=== PATIENT | female | born 1930 | race Caucasian/White ===

== ENCOUNTER → 2017-12-03 | Outpatient (CLI) | payer MEDICARE ==
[~2017-12-03] MED LIST: AMOX1TAB64 PO; ASCO10004 PO; BACL-19 PO; CINN500C2 PO; DIAZ5TAB PO; ETOD400T PO; LISI-170 PO; METH500T7 PO; MULT-717 PO; OMEG1CAP25 PO; VITA15LO2 PO
== END ==
LOC: RAD 12:52
PROVIDERS: ATTEND Hospitalist
DX: M54.9 Dorsalgia, unspecified (principal)

== ENCOUNTER → 2018-12-19 | Outpatient (CLI) | payer MEDICARE ==
[2018-12-19 09:30] LABS: BASOPHILS # (AUTO) 0.04 x10^3/uL (0-0.1); BASOPHILS % (AUTO) 1 % (0-1); EOSINOPHILS # (AUTO) 0.07 x10^3/uL (0-0.4); EOSINOPHILS % (AUTO) 2 % (1-7); LYMPHOCYTES # (AUTO) 1.09 x10^3/uL (1-3.4); LYMPHOCYTES % (AUTO) 23 % (22-44); MD NO; MEAN CORPUSCULAR HEMOGLOBIN 29.9 pg (27.0-34.8); MEAN CORPUSCULAR HGB CONC 32.7 g/dL (32.4-35.8); MEAN CORPUSCULAR VOLUME 91.5 fL (80-100); MEAN PLATELET VOLUME 8.2 fL (7.4-10.4); MONOCYTES # (AUTO) 0.26 x10^3/uL (0.2-0.8); MONOCYTES % (AUTO) 5 % (2-9); NEUTROPHILS # (AUTO) 3.37 x10^3/uL (1.8-6.8); NEUTROPHILS % (AUTO) 70 % (42-75); PLATELET COUNT 227 x10^3/uL (130-400); RED BLOOD COUNT 5.01 x10^6/uL (3.82-5.3); RED CELL DISTRIBUTION WIDTH 14.2 % (9.6-15.2)
[2018-12-19 11:24] LABS: CHLORIDE 110 mmol/L (98-107)
[2018-12-19 11:57] LABS: ALANINE AMINOTRANSFERASE 32 U/L (12-78); ALBUMIN 3.6 g/dL (3.4-5.0); ALKALINE PHOSPHATASE 202 U/L (45-117); ANION GAP 8 mmol/L (5-15); BILIRUBIN,TOTAL 0.7 mg/dL (0.2-1.0); CALCIUM 9.2 mg/dL (8.5-10.1); CHOL/HDL RATIO 2.1; CHOLESTEROL, TOTAL 217 mg/dL (140-239); CREATININE 1.36 mg/dL (0.55-1.02); HDL CHOL % 47 % (28-40); HDL CHOLESTEROL (DIRECT) 101 mg/dL (40-60); LDL CHOLESTEROL,CALCULATED 88 mg/dL (54-169); LDL/HDL RATIO 0.9 (0.5-3.0); TOTAL PROTEIN 6.5 g/dL (6.4-8.2); TRIGLYCERIDES 141 mg/dL (50-200); VLDL CHOLESTEROL 28 mg/dL (0-25)
== END | disposition home or self-care (01) ==
LOC: LAB 08:52
PROVIDERS: ATTEND Internal Medicine
DX: E78.00 Pure hypercholesterolemia, unspecified (principal); I12.9 Hypertensive chronic kidney disease with stage 1 through stage 4 chronic kidney disease, or unspecified chronic kidney disease; N18.3 Chronic kidney disease, stage 3 (moderate); M54.6 Pain in thoracic spine; M85.9 Disorder of bone density and structure, unspecified; R74.8 Abnormal levels of other serum enzymes
CPT/HCPCS: 36415; 80053; 80061; 84075; 84080; 84550; 85025

== ENCOUNTER 2019-08-22 09:53 | Outpatient (CLI) | payer MEDICARE ==
[2019-08-22 10:29] LABS: MEAN CORPUSCULAR HEMOGLOBIN 30.8 pg (27.0-34.8); MEAN CORPUSCULAR HGB CONC 32.8 g/dL (32.4-35.8); MEAN CORPUSCULAR VOLUME 93.9 fL (80-100); MEAN PLATELET VOLUME 8.5 fL (7.4-10.4); PLATELET COUNT 193 x10^3/uL (130-400)
[2019-08-22 10:41] LABS: ALBUMIN 3.6 g/dL (3.4-5.0); ANION GAP 4 mmol/L (5-15); CALCIUM 9.4 mg/dL (8.5-10.1); CHLORIDE 110 mmol/L (98-107)
[2019-08-22 10:45] LABS: ALANINE AMINOTRANSFERASE 25 U/L (12-78); ALKALINE PHOSPHATASE 124 U/L (45-117); BILIRUBIN,TOTAL 0.8 mg/dL (0.2-1.0); CHOL/HDL RATIO 2.2; CHOLESTEROL, TOTAL 244 mg/dL (140-239); CREATININE 1.36 mg/dL (0.55-1.02); HDL CHOL % 45 % (28-40); HDL CHOLESTEROL (DIRECT) 111 mg/dL (40-60); LDL CHOLESTEROL,CALCULATED 112 mg/dL (54-169); TOTAL PROTEIN 6.5 g/dL (6.4-8.2); TRIGLYCERIDES 106 mg/dL (50-200); VLDL CHOLESTEROL 21 mg/dL (0-25)
== END 2019-08-22 23:59 | disposition home or self-care (01) ==
LOC: LAB 09:53
PROVIDERS: ATTEND Internal Medicine
DX: E78.00 Pure hypercholesterolemia, unspecified (principal); E79.0 Hyperuricemia without signs of inflammatory arthritis and tophaceous disease; I12.9 Hypertensive chronic kidney disease with stage 1 through stage 4 chronic kidney disease, or unspecified chronic kidney disease; N18.3 Chronic kidney disease, stage 3 (moderate); M50.30 Other cervical disc degeneration, unspecified cervical region; M54.6 Pain in thoracic spine; R74.8 Abnormal levels of other serum enzymes
CPT/HCPCS: 36415; 80053; 80061; 82570; 83970; 84156; 84550; 85027

== ENCOUNTER 2021-03-11 07:35 | Emergency (ER) | payer MEDICARE ==
[~2021-03-11] VITALS: Ht 160 cm; Wt 55.0 kg
[~2021-03-11 07:35] MED LIST changes: +ASCO100018 PO; -ASCO10004 PO; -ETOD400T PO; +ETOD400T3 PO; +METH-639 PO; -METH500T7 PO
--- NOTE | 2021-03-11 07:40 | NUR ---
PT ROBERTO FROM HOME FOR C/O LOWER BACK PAIN. PER PT SHE FELLS 02/27/2021 WHEN HER LEFT LEG GAVE OUT AND SHE LANDED ON HER BOTTOM, SINCE THE FALL SHE C/O BACK PAIN & MUSCLE SPASMS THAT RADIATE TO HER RIBS. PT STATES SHE WENT TO THE [place] WHERE SHE DISCOVERED SHE HAS A COMPRESSION FX. PT TOOK ROBAXIN & TYLENOL @ 0500AM. PT CHANGED INTO GOWN, MONITORS IN PLACE. CALL [facility]
[2021-03-11 07:41] VITALS: BP 172/91
--- NOTE | 2021-03-11 07:44 | NUR ---
ERP AT BS FOR EVAL
[2021-03-11 08:35] LABS: BASOPHILS % (AUTO) 1 % (0-1); EOSINOPHILS % (AUTO) 1 % (1-7); LYMPHOCYTES % (AUTO) 17 % (22-44); MEAN CORPUSCULAR HEMOGLOBIN 30.8 pg (27.0-34.8); MEAN CORPUSCULAR HGB CONC 33.9 g/dL (32.4-35.8); MEAN PLATELET VOLUME 8.6 fL (7.4-10.4); MONOCYTES % (AUTO) 9 % (2-9); NEUTROPHILS % (AUTO) 73 % (42-75); PLATELET COUNT 220 x10^3/uL (130-400); RED BLOOD COUNT 4.31 x10^6/uL (3.82-5.3); RED CELL DISTRIBUTION WIDTH 14.3 % (9.6-15.2)
[2021-03-11 08:37] LABS: ALBUMIN 2.8 g/dL (3.4-5.0); ANION GAP 7 mmol/L (5-15); CALCIUM 9.5 mg/dL (8.5-10.1); CHLORIDE 108 mmol/L (98-107); CREATININE 1.37 mg/dL (0.55-1.02)
--- NOTE | 2021-03-11 09:05 | NUR ---
ERP AT FOR RECHECK
--- NOTE | 2021-03-11 10:13 | NUR ---
Patient given discharge instructions and they have confirmed that they understand the instructions. Patient ambulatory with steady gait.
== END 2021-03-11 10:14 | disposition home or self-care (01) ==
LOC: ED 08:58
DX: G89.11 Acute pain due to trauma (principal); M54.5 Low back pain; I12.9 Hypertensive chronic kidney disease with stage 1 through stage 4 chronic kidney disease, or unspecified chronic kidney disease; N18.31 Chronic kidney disease, stage 3a; E78.5 Hyperlipidemia, unspecified; W18.30XA Fall on same level, unspecified, initial encounter; Y93.89 Activity, other specified; Y92.009 Unspecified place in unspecified non-institutional (private) residence as the place of occurrence of the external cause; Y99.8 Other external cause status
CPT/HCPCS: 36415; 80048; 82040; 85025; 99283

== ENCOUNTER 2021-03-13 09:51 | Inpatient (IN) | payer MEDICARE ==
[~2021-03-13] VITALS: Ht 149.9 cm; Wt 47.8 kg
--- NOTE | 2021-03-13 10:14 | NUR ---
PT WHEELED TO ROOM FROM TRIAGE. PT REQUESTS TO STAY IN WHEEL CHAIR DUE TO PT COMFORT. BSC PROVIDED TO PT AT THIS TIME.
[2021-03-13] MEDS ORDERED: ONDANSETRON ODT 4 MG PO ONE (10:30)
[2021-03-13] MEDS ORDERED: HYDROcodone/APAP 5/325 TABLET PO ONE (10:30)
--- NOTE | 2021-03-13 10:35 | NUR ---
DR YAN AT BS FOR PT EXAM AT THIS TIME.
[2021-03-13] MEDS ORDERED: ONDANSETRON ODT 4 MG ONE (10:42)
[2021-03-13] MEDS ORDERED: HYDROcodone/APAP 5/325 TABLET ONE (10:42)
--- NOTE | 2021-03-13 10:53 | NUR ---
PT MEDICATED PER MAR AT THIS TIME. PT BACK TO WHEELCHAIR FROM [facility] FOR PT COMFORT.
--- NOTE | 2021-03-13 11:30 | NUR ---
PT TO CT VIA [facility] AT THIS TIME.
--- NOTE | 2021-03-13 11:41 | NUR ---
PT BACK FROM CT AT THIS TIME.
[2021-03-13 11:48] LABS: MICROSCOPIC NOT IND
--- NOTE | 2021-03-13 12:56 | NUR ---
PT VSS AND UPDATED IN EMR. PT DENIES ANY NEEDS AT THIS TIME. PT FAMILY REQUESTING CONSULT WITH SW.
--- NOTE | 2021-03-13 12:59 | NUR ---
CONSULT FOR ANNETTE OBTAINED AT THIS TIME.
--- NOTE | 2021-03-13 14:02 | NUR ---
REPORT FROM [facility]. PT SITTING UP IN BED, NAD NOTED AT THIS TIME. RESPIRATIONS EVEN AND UNLABORED. FAMILY AT BEDSIDE. AWAITING SW.
--- NOTE | 2021-03-13 14:57 | NUR ---
PT SITTING UP IN BED, RESPIRATIONS EVEN AND UNLABORED. NAD NOTED AT THIS TIME. FAMILY AT BEDSIDE. ANNETTE LUO AT BEDSIDE TALKING WITH FAMILY AND PT.
[2021-03-13] MEDS ORDERED: ELDE1CAP PO (15:21)
[2021-03-13] MEDS ORDERED: BACLOFEN 10 MG TABLET PO PRN (15:30)
[2021-03-13] MEDS ORDERED: GUAIFENESIN/DM 200-20MG, 10ML UDC PO PRN (15:30)
[2021-03-13] MEDS ORDERED: ACETAMINOPHEN 325 MG TABLET PO PRN (15:30)
[2021-03-13] MEDS ORDERED: ONDANSETRON ODT 4 MG PO PRN (15:30)
[2021-03-13] MEDS ORDERED: OXYcodone IR 5MG TABLET PO PRN (15:30)
[2021-03-13] MEDS ORDERED: BUTALB/APAP/CAFFEINE 50MG/325MG/40MG PO PRN (15:30)
[2021-03-13] MEDS ORDERED: ONDANSETRON 2MG/ML, 2ML IVPush PRN (15:30)
--- NOTE | 2021-03-13 15:38 | NUR ---
FIRST ATTEMPT TO CALL REPORT.
[2021-03-13] MEDS: ENOXAPARIN 30 MG/0.3 ML SQ SCH (17:18)
[2021-03-13 19:38] VITALS: BP 130/83
[2021-03-13] MEDS: MELATONIN 5 MG TABLET PO SCH (20:42)
[2021-03-14 01:30] VITALS: BP 116/67
[2021-03-14 07:58] VITALS: BP 136/69
[2021-03-14] MEDS: OMEGA-3/FISH OIL CAPSULE PO SCH (10:46)
[2021-03-14] MEDS: METHOCARBAMOL 750 MG TABLET PO PRN ×2 (10:46→17:28)
[2021-03-14] MEDS: LISINOPRIL 20 MG TABLET PO SCH (10:46)
[2021-03-14] MEDS: SENNA/DOCUSATE TABLET PO SCH (10:48)
[2021-03-14 12:47] VITALS: BP 136/78
[2021-03-14] MEDS: ENOXAPARIN 30 MG/0.3 ML SQ SCH (17:21)
[2021-03-14 18:40] VITALS: BP 113/71
[2021-03-14] MEDS: MELATONIN 5 MG TABLET PO SCH (20:44)
[2021-03-15] MEDS: METHOCARBAMOL 750 MG TABLET PO PRN ×2 (06:14→14:19)
[2021-03-15 07:50] VITALS: BP 139/80
[2021-03-15] MEDS: LISINOPRIL 20 MG TABLET PO SCH (07:53)
[2021-03-15] MEDS: OMEGA-3/FISH OIL CAPSULE PO SCH (07:53)
[2021-03-15] MEDS: SENNA/DOCUSATE TABLET PO SCH (07:54)
[2021-03-15] MEDS ORDERED: TRAM50TA2 PO (12:49)
[2021-03-15 13:33] VITALS: BP 111/75
[2021-03-15] MEDS ORDERED: LISI-170 PO (13:52)
== END 2021-03-15 16:35 | DRG 536 ==
LOC: ED 10:08 → 4NE 14:47 → INTOOBSV 14:47 → OBSVTOIN 14:47 → ED 14:47 → 4NE 16:09
PROVIDERS: ADMIT Family Medicine; ATTEND Family Medicine
PROC: 0T9B70Z Drainage of Bladder with Drainage Device, Via Natural or Artificial Opening (ICD-10-PCS; principal; 2021-03-13)
DX: S32.592A Other specified fracture of left pubis, initial encounter for closed fracture (principal); N18.30 Chronic kidney disease, stage 3 unspecified; E78.5 Hyperlipidemia, unspecified; I12.9 Hypertensive chronic kidney disease with stage 1 through stage 4 chronic kidney disease, or unspecified chronic kidney disease; W18.39XA Other fall on same level, initial encounter; Y93.89 Activity, other specified; Y92.89 Other specified places as the place of occurrence of the external cause; Y99.8 Other external cause status; Z88.8 Allergy status to other drugs, medicaments and biological substances
CPT/HCPCS: 72131; 74176; 81003; G0378; J1650; Q0162